=== PATIENT | female | born 2000 | race Caucasian/White ===

== ENCOUNTER → 2022-08-10 | Outpatient (CLI) | payer BC ==
--- NOTE | 2022-08-10 19:10 | Diagnostic Imaging Report ---
INDICATION: Routine care. TECHNIQUE: Multiple real-time grayscale images were obtained over the gravid uterus. COMPARISON: None. FINDINGS: There is a single live intrauterine gestation in variable presentation. The cervix measures 5.7 cm in length. The placenta is anterior, measuring 1.5 cm from the internal os. The amniotic fluid index measures 15.3 cm, and the heart rate measures 146 BPM. The stomach is seen. The nose and lips are seen. The kidneys are seen. The bladder is seen. There are two umbilical arteries demonstrating a three-vessel cord. The cerebellum and cisterna magna are suboptimally visualized. The cisterna magna is seen. The lateral ventricle is seen. The cord insertion is seen. A four-chamber heart is seen. The right and left ventricular outflow tracts are seen. The diaphragm is seen. The upper spine is well seen. The lower spine is suboptimally visualized due to lie. Biometrical measurements are as follows: Biparietal 4.55 cm, age 19 weeks 6 days. Head circumference 17.60 cm, age 20 weeks 1 days. Abdominal circumference 16.45 cm, age 21 weeks 4 days. Femur length 3.26 cm, age 20 weeks 2 days. Sonographic estimate age: 20 weeks 4 days. Sonographic estimated date of delivery: 12/24/2022. Estimated Weight: 376 gm (+/- 55 gm). LMP percentile: 86%. heart rate: 146 beats per minute. number: 1 of 1. IMPRESSION: 1. Single live intrauterine gestation measuring at 20 weeks and 4 days which is within range of the clinical dates. 2. Anatomic survey. No abnormality is seen. The cerebellum, cisterna magna, and lower spine are not well seen on today's exam. 3. Low-lying placenta. Recommend continued follow-up. Dictated by: Dictated on workstation # [id number]
== END ==
LOC: RAD 11:29
PROVIDERS: ATTEND Obstetrics & Gynecology
DX: O44.42 Low lying placenta NOS or without hemorrhage, second trimester (principal); Z3A.20 20 weeks gestation of pregnancy
CPT/HCPCS: 76805

== ENCOUNTER 2022-12-27 18:30 | Inpatient (IN) | payer BC ==
[~2022-12-27] VITALS: Ht 160 cm; Wt 104.3 kg
[2022-12-27] MEDS ORDERED: LACTATED RINGERS 1,000 ML IV SCH (19:45)
[2022-12-27] MEDS ORDERED: LACTATED RINGERS 1,000 ML IV ONE (19:49)
[2022-12-27 19:50] LABS: BILIRUBIN,URINE NEGATIVE (NEGATIVE); CLARITY,URINE CLEAR; COLOR,URINE YELLOW; GLUCOSE, URINE (UA) NEGATIVE (NEGATIVE); KETONES,URINE 1+ (NEGATIVE); LEUKOCYTE ESTERASE ,URINE TRACE (NEGATIVE); NITRITE,URINE NEGATIVE (NEGATIVE); PH,URINE 6.5 (5-9); PROTEIN,URINE NEGATIVE (NEGATIVE)
[2022-12-27 19:52] LABS: BASOPHILS % (AUTO) 0 % (0-10); EOSINOPHILS # (AUTO) 0.1 10^3/uL (0.0-0.3); EOSINOPHILS % (AUTO) 1 % (0-10); HEMATOCRIT 28 % (35-52); HEMOGLOBIN 9.1 g/dL (11.5-16.0); LYMPHOCYTES # (AUTO) 1.4 10^3/uL (1.0-4.0); LYMPHOCYTES % (AUTO) 12 % (12-44); MEAN CORPUSCULAR HEMOGLOBIN 27 pg (25-34); MEAN CORPUSCULAR HGB CONC 33 g/dL (32-36); MEAN CORPUSCULAR VOLUME 82 fL (80-99); MEAN PLATELET VOLUME 9.8 fL (9.0-12.2); MONOCYTES # (AUTO) 0.5 10^3/uL (0.0-1.0); MONOCYTES % (AUTO) 4 % (0-12); NEUTROPHILS # (AUTO) 10.1 10^3/uL (1.8-7.8); NEUTROPHILS % (AUTO) 83 % (42-75); PLATELET COUNT 232 10^3/uL (130-400); WHITE BLOOD COUNT 12.1 10^3/uL (4.3-11.0)
[2022-12-27] MEDS: D5 LR IV SOLUTION 1,000 ML IV SCH (19:55)
[2022-12-27 19:58] VITALS: BP 134/72
[2022-12-27 20:00] LABS: AMORPHOUS SEDIMENT,UR FEW AMOR URATES /LPF; BACTERIA,URINE FEW /HPF
[2022-12-27 21:30] VITALS: BP 142/83
[2022-12-27 22:30] VITALS: BP 132/84
[2022-12-28] VITALS (61 sets, daily range): BP systolic 107–140; BP diastolic 55–96
[2022-12-28] MEDS ORDERED: ACETAMINOPHEN 500 MG TAB (TYLENOL) ONE (01:45)
[2022-12-28] MEDS ORDERED: ACETAMINOPHEN 500 MG TAB (TYLENOL) PO ONE (01:45)
[2022-12-28] MEDS: D5 LR IV SOLUTION 1,000 ML IV SCH ×2 (03:32→11:12)
[2022-12-28] MEDS ORDERED: HYDROmorphone 2 MG/ML VIAL (DILAUDID) ONE (05:35)
[2022-12-28] MEDS ORDERED: HYDROmorphone 2 MG/ML VIAL (DILAUDID) IV ONE (05:45)
[2022-12-28] MEDS: CATHETER FLUSH 10 ML SYR IV SCH ×3 (06:00→14:00)
--- NOTE | 2022-12-28 06:14 | History & Physical-OB/GYN ---
History of Present Illness History of Present Illness Reason for visit/HPI Induction of labor Date of Admission Dec 27, 2022 at 18:59 I consulted on this patient on 12/28/22 06:09 Attending Physician No,Local Physician Admitting Physician Admitting Physician: Jb Hartman DO Attending Physician: Jb Hartman DO Consult Allergies and Home Medications Allergies Coded Allergies: No Known Drug Allergies (Unverified , 12/27/22) Patient Home Medication List Home Medication List Reviewed: No Past Fvoluri-Pxksgo-Jyksel Hx Patient Social History Smoking Status: Never a Smoker Have you traveled recently?: No Alcohol Use?: No Pt feels they are or have been: No Reproductive System : Yes Expected Date of Delivery: Dec 28, 2022 Physical Exam Physical Exam Vital Signs Vital Signs Date Time Temp Pulse Resp B/P (MAP) Pulse Ox O2 Delivery O2 Flow Rate FiO2 12/28/22 05:15 82 18 125/78 (94) Room Air 12/28/22 03:45 74 18 125/76 (92) Room Air 12/28/22 02:15 69 18 130/65 (86) Room Air 12/28/22 00:45 72 18 135/86 (102) Room Air 12/27/22 22:30 69 18 132/84 (100) Room Air 12/27/22 21:30 63 18 142/83 (102) Room Air 12/27/22 19:58 37.3 91 18 99 Room Air I & O 12/28/22 07:00 Intake Total 1500 ml Balance 1500 ml Capillary Refill : Less Than 3 Seconds Labs Laboratory Tests 12/27/22 19:35: White Blood Count 12.1H, Red Blood Count 3.42L, Hemoglobin 9.1L, Hematocrit 28L, Mean Corpuscular Volume 82, Mean Corpuscular Hemoglobin 27, Mean Corpuscular Hemoglobin Concent 33, Red Cell Distribution Width 14.5, Platelet Count 232, Mean Platelet Volume 9.8, Immature Granulocyte % (Auto) 0, Neutrophils (%) (Auto) 83H, Lymphocytes (%) (Auto) 12, Monocytes (%) (Auto) 4, Eosinophils (%) (Auto) 1, Basophils (%) (Auto) 0, Neutrophils # (Auto) 10.1H, Lymphocytes # (Auto) 1.4, Monocytes # (Auto) 0.5, Eosinophils # (Auto) 0.1, Basophils # (Auto) 0.0, Immature Granulocyte # (Auto) 0.0, Urine Color YELLOW, Urine Clarity CLEAR, Urine pH 6.5, Urine Specific [place] 1.010L, Urine Protein NEGATIVE, Urine Glucose (UA) NEGATIVE, Urine Ketones 1+H, Urine Nitrite NEGATIVE, Urine Bilirubin NEGATIVE, Urine Urobilinogen 0.2, Urine Leukocyte Esterase TRACEH, Urine RBC (Auto) NEGATIVE, Urine RBC NONE, Urine WBC 2-5, Urine Squamous Epithelial Cells 5-10, Urine Crystals PRESENTH, Urine Amorphous Sediment FEW DAMIEN URATESH, Urine Bacteria FEWH, Urine Casts NONE, Urine Mucus SMALLH, Urine Culture Indicated YES Assessment/Plan Admission Diagnosis Induction of labor Admission Status: Inpatient Order (span 2 midnights) Reason for Inpatient Admission: Induction of labor GISSELLE VILLA Dec 28, 2022 06:14
--- NOTE | 2022-12-28 06:22 | History & Physical-OB ---
GISSELLE VILLA 12/28/22 0622: OB - Chief Complaint & HPI Date/Time Date of Admission: Date of Admission: Dec 27, 2022 at 18:59 Chief Complaint/History OB-Reason for Admission/Chief: Induction of Labor Hx : 1 Hx Para: 0 Expected Date of Delivery: Dec 28, 2022 Gestational Age in Weeks: 39 Gestational Age in Days: 6 Indication for induction: maternal discomfort Other reason for admission: Induction of labor Admission Nurse Assessment Rev: Yes Allergies and Home Medications Allergies Coded Allergies: No Known Drug Allergies (Unverified , 12/27/22) Patient Home Medication List Home Medication List Reviewed: No OB - History Hx of Present Care: Yes Ultrasounds: Normal mid trimester US Obstetrical Complications: None Medical Complications: None Information Induced Hypertension: No Maternal Gestational Diabetes: No Hemorrhage: No Obstetrical History Hx : 1 Hx Para: 0 Hx Termination: No Hx Multiple Gestation: No Hx Ectopic : No Hx Stillbirth: No Hx Complication: No Hx Induced Hypertens: No Hx Maternal Gestational Diabet: No Hx Hemorrhage: No Delivery History Hx Dystocia: No Hx Forceps Assisted Delivery: No Hx Vacuum Extraction Assisted: No Hx Placenta Abnormality: No Hx Distress: No Hx Large For Gestational Age I: No Hx Small for Gestational Age I: No Hx Section: No Hx Vaginal Delivery Post C-Sec: No Hx Blood Disorders: No Adverse Rxn to Tranfusion: No Patient Past Medical History non-significant Social History/Family History Alcohol Use: Denies Use Recreational Drug Use: No Smoking Cessation: Never smoker 2nd Hand Smoke Exposure: No Immunizations Influenza Vaccine Up-to-Date: No; Not Current Tetanus Booster (TDap): Less than 5yrs Rubella: immune GBS Status: Negative HBsAG: Negative OB - Admission Exam Physical Exam Vitals: Vital Signs 12/27/22 12/28/22 19:58 05:15 Temp 37.3 Pulse 82 Resp 18 B/P (MAP) 125/78 (94) Pulse Ox 99 O2 Delivery Room Air Heart: Rhythm Normal Lungs: Clear Cervical Dilatation: 2cm Effacement: 75% Station: -3 Membranes: Intact Heart Rate: 150's Accelerations: Accelerations Present Decelerations: No Decelerations Skilled Nursing Variability: Average (6-25) Frequency of Contractions: 2-3 minutes Duration: 50-190 seconds Intensity: Moderate Narvaez Scoring Tool (Modified) Dilation (cm): 1-2cm (1) Effacement (%): 51-79% (2) Descent/Station: -3 (0) Subtract 1 point for: Nulliparity (-1) Labs Laboratory Tests Test 12/27/22 19:35 Range/Units White Blood Count 12.1 H 4.3-11.0 10^3/uL Red Blood Count 3.42 L 3.80-5.11 10^6/uL Hemoglobin 9.1 L 11.5-16.0 g/dL Hematocrit 28 L 35-52 % Mean Corpuscular Volume 82 80-99 fL Mean Corpuscular Hemoglobin 27 25-34 pg Mean Corpuscular Hemoglobin Concent 33 32-36 g/dL Red Cell Distribution Width 14.5 10.0-14.5 % Platelet Count 232 130-400 10^3/uL Mean Platelet Volume 9.8 9.0-12.2 fL Immature Granulocyte % (Auto) 0 % Neutrophils (%) (Auto) 83 H 42-75 % Lymphocytes (%) (Auto) 12 12-44 % Monocytes (%) (Auto) 4 0-12 % Eosinophils (%) (Auto) 1 0-10 % Basophils (%) (Auto) 0 0-10 % Neutrophils # (Auto) 10.1 H 1.8-7.8 10^3/uL Lymphocytes # (Auto) 1.4 1.0-4.0 10^3/uL Monocytes # (Auto) 0.5 0.0-1.0 10^3/uL Eosinophils # (Auto) 0.1 0.0-0.3 10^3/uL Basophils # (Auto) 0.0 0.0-0.1 10^3/uL Immature Granulocyte # (Auto) 0.0 0.0-0.1 10^3/uL Urine Color YELLOW Urine Clarity CLEAR Urine pH 6.5 5-9 Urine Specific [place] 1.010 L 1.016-1.022 Urine Protein NEGATIVE NEGATIVE Urine Glucose (UA) NEGATIVE NEGATIVE Urine Ketones 1+ H NEGATIVE Urine Nitrite NEGATIVE NEGATIVE Urine Bilirubin NEGATIVE NEGATIVE Urine Urobilinogen 0.2 < = 1.0 MG/DL Urine Leukocyte Esterase TRACE H NEGATIVE Urine RBC (Auto) NEGATIVE NEGATIVE Urine RBC NONE /HPF Urine WBC 2-5 /HPF Urine Squamous Epithelial Cells 5-10 /HPF Urine Crystals PRESENT H /LPF Urine Amorphous Sediment FEW DAMIEN URATES H /LPF Urine Bacteria FEW H /HPF Urine Casts NONE /LPF Urine Mucus SMALL H /LPF Urine Culture Indicated YES OB - Assessment/Plan/Diagnosis Assessment Assessment: induction of labor Admission Dx Induction of labor Admission Status: Inpatient Order (span 2 midnights) Reason for Inpatient Admission: Induction of labor Plan Plan: Induction Induction Method: per Misoprostol Protocol Reason for Induction: Maternal discomfort KIMBERLEY MENDIOLA DO 12/28/22 0908: OB - Chief Complaint & HPI Date/Time Time Seen by a Provider: 07:15 Allergies and Home Medications Allergies Coded Allergies: No Known Drug Allergies (Unverified , 12/27/22) OB - Assessment/Plan/Diagnosis Plan Other Plan Verification and Attestation of Medical Student E/M Service A medical student performed and documented this service in my presence. I reviewed and verified all information documented by the medical student and made modifications to such information, when appropriate. I personally performed the physical exam and medical decision making. Kimberley Mendiola, Dec 28, 2022,09:08 GISSELLE VILLA Dec 28, 2022 06:22 KMIBERLEY MENDIOLA DO Dec 28, 2022 09:08
[2022-12-28] MEDS ORDERED: OXYTOCIN PRE-MIX DRIP 500 ML IV SCH ×2 (07:30→14:45)
[2022-12-28] MEDS ORDERED: fentaNYL 2 mcg/ml BUPIVA 0.125 100 ML ONE (08:03)
[2022-12-28] MEDS ORDERED: fentaNYL INJ 100 MCG/2 ML AMP ONE (08:30)
[2022-12-28] MEDS ORDERED: BUPIVACAINE 0.25% 10 ML (SENSORCAINE) VIAL ONE (08:30)
[2022-12-28] MEDS ORDERED: ONDANSETRON 4 MG/2 ML (SDV) Z0FRAN IV PRN (09:45)
[2022-12-28] MEDS ORDERED: diphenhydrAMINE 50 MG/ML INJ (BENADRYL) IV PRN (09:45)
[2022-12-28] MEDS ORDERED: NALOXONE 0.4 MG/ML 1 ML (NARCAN) VIAL IV PRN ×3 (09:45→14:45)
[2022-12-28] MEDS ORDERED: fentaNYL 2 mcg/ml BUPIVA 0.125 100 ML EPI SCH (09:45)
[2022-12-28] MEDS ORDERED: METOCLOPRAMIDE INJ 10 MG/2 ML (REGLAN) IV PRN (09:45)
[2022-12-28] MEDS ORDERED: LACTATED RINGERS 1,000 ML IV ONE (09:45)
[2022-12-28] MEDS ORDERED: LIDOCAINE 1% INJ 10 ML VIAL ONE ×2 (13:15→13:16)
[2022-12-28] MEDS ORDERED: LIDOCAINE 1% INJ 10 ML VIAL INJ ONE (13:54)
[2022-12-28] MEDS ORDERED: MEASLES,MUMPS,RUBELLA 1 EA INJ SQ ONE (14:45)
[2022-12-28] MEDS ORDERED: TETANUS,DIPTH,PERTUSS P/F (BOOSTRIX) 0.5 ML VIAL IM ONE (14:45)
[2022-12-28] MEDS ORDERED: HYDROcodone/APAP 5 MG/325 MG (LORTAB) TAB PO PRN (14:45)
[2022-12-28] MEDS ORDERED: DIBUCAINE 1% OINTMENT 28 GM TUBE TOP PRN (14:45)
[2022-12-28] MEDS ORDERED: BENZOCAINE/MENTHOL (DERMOPLAST) 56 ML CAN TP PRN (14:45)
--- NOTE | 2022-12-28 14:56 | OB Labor & Delivery Record ---
L&D History Date of Service Date of Service: Dec 28, 2022 History Expected Date of Delivery: Dec 28, 2022 Gestational Age in Weeks: 39 Hx : 1 Hx Para: 0 Complications Events: Routine care Operative Indications (Cesarea: N/A-Vaginal Delivery Intrapartal Events: None L&D Stage1 Stage One Onset of Labor - Date: Dec 28, 2022 Monitors and Tracing Monitor Mode: External Heart Rate: 155 Monitor Accelerations: Uniform Monitor Decelerations: Variable Station: -3 Intermediate Variability: Average (6-10) Short Term Variability: Present Presentation: Vertex Vital Signs VS - Last 72 Hours, by Label 12/27/22 12/27/22 12/27/22 12/28/22 19:58 21:30 22:30 00:45 Temp 37.3 Pulse 91 63 69 72 Resp 18 18 18 18 B/P (MAP) 142/83 (102) 132/84 (100) 135/86 (102) Pulse Ox 99 O2 Delivery Room Air Room Air Room Air Room Air 12/28/22 12/28/22 12/28/22 12/28/22 02:15 03:45 05:15 06:45 Temp 36.6 Pulse 69 74 82 71 Resp 18 18 18 18 B/P (MAP) 130/65 (86) 125/76 (92) 125/78 (94) 138/84 (102) O2 Delivery Room Air Room Air Room Air Room Air 12/28/22 12/28/22 12/28/22 12/28/22 08:03 08:12 08:15 08:20 Temp 36.5 Pulse 68 69 67 67 Resp 18 18 18 18 B/P (MAP) 134/84 (101) 133/82 (99) 140/79 (99) 131/77 (95) Pulse Ox 100 100 100 O2 Delivery Room Air Room Air Room Air Room Air 12/28/22 12/28/22 12/28/22 12/28/22 08:23 08:26 08:27 08:30 Pulse 69 74 74 72 Resp 18 18 18 18 B/P (MAP) 136/79 (98) 128/73 (91) 135/76 (95) 132/74 (93) Pulse Ox 99 99 96 O2 Delivery Room Air Room Air Room Air Room Air 4/1812/28/22 12/28/22 12/28/22 08:31 08:32 08:34 08:39 Pulse 65 64 71 65 Resp 18 18 18 18 B/P (MAP) 133/74 (93) 133/77 (95) 136/79 (98) 127/74 (91) Pulse Ox 98 98 99 99 O2 Delivery Room Air Room Air Room Air Room Air 12/28/22 12/28/22 12/28/22 12/28/22 08:42 08:45 08:48 08:50 Pulse 70 72 72 75 Resp 18 18 18 18 B/P (MAP) 131/79 (96) 123/77 (92) 126/78 (94) 126/76 (93) Pulse Ox 97 98 O2 Delivery Room Air Room Air Room Air Room Air 12/28/22 12/28/22 12/28/22 12/28/22 08:53 08:57 09:00 09:05 Pulse 73 75 83 73 Resp 18 18 18 18 B/P (MAP) 130/66 (87) 133/69 (90) 130/75 (93) 126/72 (90) Pulse Ox 99 99 99 O2 Delivery Room Air Room Air Room Air Room Air 12/28/22 12/28/22 12/28/22 12/28/22 09:09 09:13 09:19 09:24 Pulse 79 78 80 69 Resp 18 18 18 18 B/P (MAP) 122/82 (95) 140/84 (102) 137/80 (99) 131/60 (83) Pulse Ox 100 100 99 100 O2 Delivery Room Air Room Air Room Air Room Air 12/28/22 12/28/22 12/28/22 12/28/22 09:29 09:33 09:39 09:43 Pulse 71 74 70 81 Resp 18 18 18 18 B/P (MAP) 128/76 (93) 124/96 (105) 129/77 (94) 123/76 (92) Pulse Ox 100 O2 Delivery Room Air Room Air Room Air Room Air 12/28/22 12/28/22 12/28/22 12/28/22 09:48 10:11 10:19 10:33 Pulse 71 75 63 77 Resp 18 18 18 18 B/P (MAP) 134/79 (97) 126/76 (93) 123/72 (89) 129/78 (95) O2 Delivery Room Air Room Air Room Air Room Air 12/28/22 12/28/22 12/28/22 12/28/22 10:49 11:04 11:19 11:35 Temp 36.9 Pulse 69 82 67 70 Resp B/P (MAP) 133/76 (95) 130/75 (93) 137/80 (99) 140/85 (103) O2 Delivery Room Air Room Air Room Air Room Air Rupture of Membranes Spontaneous Ruture of Membrane: Yes Amniotic Membrane Rupture Time: 723 Amniotic Membrane Fluid Desc.: Clear Vaginal Bleeding Description: Normal Show Induction/Anesthesia Epidural Cath Placement - Time: 823 Progress/Notes Patient admitted for post dates IOL. Misoprostol PO given overnight. She then had AROM performed this AM followed by low dose pitocin augmentation to max dose of 4 mu. She progressed after receiving an epidural to complete and + 2 station L&D Stage2 Stage Two Stage II Date: Dec 28, 2022 Monitors and Tracing Monitor Mode: External Heart Rate: 155 Intermediate Variability: Average (6-10) Short Term Variability: Present Position: Right Occiput Anterior Presentation: Vertex Cord Descript/Complications Cord Vessel Description: 3 Vessels Delivery Type Infant Delivery Method: Spontaneous Vaginal Anterior Shoulder: Left Episiotomy/Perineal Laceration Episiotomy Description: Midline Location Modifier: Medial Degree (describe repair) midline episiotomy repaired using 3-0 and 2-0 vicryl suture in usual fashion. Condition of Delivery 1 minute Comment: 8 5 minute Comment: 9 Notes Live female infant weight 9lbs 7oz. Condition of Condition of : Living Exam: No Observed Abnormalities Resuscitation Resuscitation: N/A - Spontaneous Resp L&D Stage3 Stage Three Stage III Date: Dec 28, 2022 Pictocin Pitocin Administration mu/min: 4 Pitocin ml/hr: 4 Pitocin Administration Comment: 30 mu wide open after delivery of placenta Placenta Delivery Placenta Delivery: Spontaneous Delivery Summary Summary Estimated blood loss (mL): 450 Attending at delivery: Kimberley Mendiola DO Condition of Delivery Examined: Cervix Examined, Uterus Explored Post Hemorrhage: No Condition of Mother stable Condition of Infant (s) stable KIMBERLEY MENDIOLA DO Dec 28, 2022 14:56
--- NOTE | 2022-12-28 14:58 | Discharge Inst-Women's Service ---
Discharge Inst-Women's Serv Depart Medication/Instructions New, Converted or Re-Newed RX: Transmitted to Pharmacy Problems Reviewed?: Yes Consults/Follow Up Additional Follow Up: Yes Orders/Referrals Dr. Mendiola in 6 weeks Activity Activity: Activity as Tolerated Driving Instructions: No Driving for 1 Week NO SMOKING: NO SMOKING Nothing Inside Vagina: No Douching, No [place], No Tampons Diet Discharge Diet: No Restrictions Symptoms to Report to : Bleeding Excessive, Pain Increased, Fever Over 101 Degrees F, Vaginal Bleeding Increase, Questions/Concerns For Any Problems or Questions: Contact Your Physician KIMBERLEY MENDIOLA DO Dec 28, 2022 14:58
[2022-12-28] MEDS ORDERED: DOCU100C37 PO (14:59)
[2022-12-28] MEDS ORDERED: IBUP-844 PO (14:59)
[2022-12-28] MEDS ORDERED: ACHD5005 PO (14:59)
[2022-12-28] MEDS ORDERED: FERR325T24 PO (14:59)
[2022-12-28] MEDS ORDERED: BENZ78AE5 TP (14:59)
[2022-12-28] MEDS ORDERED: DIBU30OI TOP (14:59)
[2022-12-28] MEDS: IBUPROFEN 600 MG (MOTRIN) TAB PO SCH (17:58)
[2022-12-28] MEDS: WITCH HAZEL(TUCKS) 40 EA JAR TOP PRN (18:00)
[2022-12-28] MEDS: DOCUSATE SODIUM 100 MG (COLACE) CAP PO SCH (20:16)
[2022-12-28] MEDS ORDERED: CATHETER FLUSH 10 ML SYR IV SCH (22:00)
[2022-12-29 00:31] VITALS: BP 118/79
[2022-12-29] MEDS: IBUPROFEN 600 MG (MOTRIN) TAB PO SCH ×5 (00:31→23:57)
[2022-12-29 03:30] VITALS: BP 132/74
[2022-12-29 06:36] LABS: BASOPHILS % (AUTO) 0 % (0-10); EOSINOPHILS # (AUTO) 0.1 10^3/uL (0.0-0.3); EOSINOPHILS % (AUTO) 0 % (0-10); HEMATOCRIT 21 % (35-52); LYMPHOCYTES # (AUTO) 1.7 10^3/uL (1.0-4.0); LYMPHOCYTES % (AUTO) 13 % (12-44); MEAN CORPUSCULAR HGB CONC 32 g/dL (32-36); MEAN CORPUSCULAR VOLUME 83 fL (80-99); MEAN PLATELET VOLUME 9.5 fL (9.0-12.2); MONOCYTES # (AUTO) 0.8 10^3/uL (0.0-1.0); MONOCYTES % (AUTO) 6 % (0-12); NEUTROPHILS # (AUTO) 10.7 10^3/uL (1.8-7.8); NEUTROPHILS % (AUTO) 80 % (42-75); PLATELET COUNT 203 10^3/uL (130-400); WHITE BLOOD COUNT 13.4 10^3/uL (4.3-11.0)
[2022-12-29 06:41] LABS: HEMOGLOBIN 6.8 g/dL (11.5-16.0); MEAN CORPUSCULAR HEMOGLOBIN 26 pg (25-34)
--- NOTE | 2022-12-29 07:33 | Postpartum Progress Note ---
GISSELLE VILLA 12/29/22 0733: Note Note Day # 1 Subjective: Patient is without complaints. Ambulating, voiding. Tolerating a regular diet without nausea or vomiting. Normal lochia. Pain is well controlled with oral pain medications. Objective: Physical Exam: General - Alert and oriented, no apparent distress Cardio - RRR, no murmurs Pulmonary - CTAB Abdomen - Soft, appropriately tender to palpation, non-distended, fundus firm at umbilicus Extremities - no edema, negative Sudarshan's bilaterally Assessment: Post- day # 1, status post vaginal delivery. Recovering well Acute on chronic anemia Reactive leukocytosis Plan: Routine care. Encourage breast feeding. Encourage ambulation. Advised being slow to stand and to take time getting around due to possibility of orthostatic hypotension. Ferrous sulfate supplementation. Plan for discharge 12/30/2022 Vitals - Labs Vital Signs - I&O Vital Signs Date Time Temp Pulse Resp B/P (MAP) Pulse Ox O2 Delivery O2 Flow Rate FiO2 12/29/22 03:30 36.4 98 18 132/74 (93) 96 Room Air 12/29/22 00:31 36.8 98 18 118/79 (92) 96 Room Air 12/28/22 20:16 37.1 93 18 110/62 (78) 98 Room Air 12/28/22 17:56 36.9 74 18 138/79 (98) 100 Room Air 12/28/22 16:42 37.5 107 18 129/76 (93) Room Air 12/28/22 16:33 93 18 126/65 (85) Room Air 12/28/22 16:18 85 18 139/73 (95) Room Air 12/28/22 16:03 86 18 132/76 (94) Room Air 12/28/22 15:48 90 18 135/80 (98) Room Air 12/28/22 15:04 86 18 128/71 (90) Room Air 12/28/22 14:48 81 18 120/59 (79) Room Air 12/28/22 14:34 88 18 136/62 (86) Room Air 12/28/22 14:18 100 18 136/66 (89) Room Air 12/28/22 13:50 78 18 134/79 (97) Room Air 12/28/22 13:34 78 18 138/75 (96) Room Air 12/28/22 13:20 86 18 137/72 (93) Room Air 12/28/22 13:05 84 18 124/70 (88) Room Air 12/28/22 12:51 92 18 123/87 (99) Room Air 12/28/22 12:33 77 18 126/69 (88) Room Air 12/28/22 12:19 85 18 139/86 (103) Room Air 12/28/22 12:04 88 18 132/83 (99) Room Air 12/28/22 11:51 78 18 107/55 (72) Room Air 12/28/22 11:35 36.9 70 18 140/85 (103) Room Air 12/28/22 11:19 67 18 137/80 (99) Room Air 12/28/22 11:04 82 18 130/75 (93) Room Air 12/28/22 10:49 69 18 133/76 (95) Room Air 12/28/22 10:33 77 18 129/78 (95) Room Air 12/28/22 10:19 63 18 123/72 (89) Room Air 12/28/22 10:11 75 18 126/76 (93) Room Air 12/28/22 09:48 71 18 134/79 (97) Room Air 12/28/22 09:43 81 18 123/76 (92) Room Air 12/28/22 09:39 70 18 129/77 (94) Room Air 12/28/22 09:33 74 18 124/96 (105) Room Air 12/28/22 09:29 71 18 128/76 (93) 100 Room Air 12/28/22 09:24 69 18 131/60 (83) 100 Room Air 12/28/22 09:19 80 18 137/80 (99) 99 Room Air 12/28/22 09:13 78 18 140/84 (102) 100 Room Air 12/28/22 09:09 79 18 122/82 (95) 100 Room Air 12/28/22 09:05 73 18 126/72 (90) 99 Room Air 12/28/22 09:00 83 18 130/75 (93) 99 Room Air 12/28/22 08:57 75 18 133/69 (90) Room Air 12/28/22 08:53 73 18 130/66 (87) 99 Room Air 12/28/22 08:50 75 18 126/76 (93) Room Air 12/28/22 08:48 72 18 126/78 (94) 98 Room Air 12/28/22 08:45 72 18 123/77 (92) 97 Room Air 12/28/22 08:42 70 18 131/79 (96) Room Air 12/28/22 08:39 65 18 127/74 (91) 99 Room Air 12/28/22 08:34 71 18 136/79 (98) 99 Room Air 12/28/22 08:32 64 18 133/77 (95) 98 Room Air 12/28/22 08:31 65 18 133/74 (93) 98 Room Air 12/28/22 08:30 72 18 132/74 (93) 96 Room Air 12/28/22 08:27 74 18 135/76 (95) Room Air 12/28/22 08:26 74 18 128/73 (91) 99 Room Air 12/28/22 08:23 69 18 136/79 (98) 99 Room Air 12/28/22 08:20 67 18 131/77 (95) 100 Room Air 12/28/22 08:15 67 18 140/79 (99) 100 Room Air 12/28/22 08:12 36.5 69 18 133/82 (99) 100 Room Air 12/28/22 08:03 68 18 134/84 (101) Room Air I & O 12/29/22 07:00 Intake Total 2000 ml Balance 2000 ml Labs Laboratory Tests 12/29/22 06:22: White Blood Count 13.4H, Red Blood Count 2.57L, Hemoglobin 6.8#*L, Hematocrit 21L, Mean Corpuscular Volume 83, Mean Corpuscular Hemoglobin 26, Mean Corpuscular Hemoglobin Concent 32, Red Cell Distribution Width 14.5, Platelet Count 203, Mean Platelet Volume 9.5, Immature Granulocyte % (Auto) 1, Neutrophils (%) (Auto) 80H, Lymphocytes (%) (Auto) 13, Monocytes (%) (Auto) 6, Eosinophils (%) (Auto) 0, Basophils (%) (Auto) 0, Neutrophils # (Auto) 10.7H, Lymphocytes # (Auto) 1.7, Monocytes # (Auto) 0.8, Eosinophils # (Auto) 0.1, Bas ophils # (Auto) 0.0, Immature Granulocyte # (Auto) 0.1 Microbiology 12/27/22 Urine Culture - Preliminary, Resulted Culture In Progress KIMBERLEY MENDIOLA DO 12/30/22 0715: Note Note Verification and Attestation of Medical Student E/M Service A medical student performed and documented this service in my presence. I reviewed and verified all information documented by the medical student and made modifications to such information, when appropriate. I personally performed the physical exam and medical decision making. Kimberley Mendiola, Dec 30, 2022,07:15 GISSELLE VILLA Dec 29, 2022 07:33 KIMBERLEY MENDIOLA DO Dec 30, 2022 07:15
[2022-12-29] MEDS: PRENATAL VITAMIN 1 EA TAB PO SCH (08:02)
[2022-12-29 09:15] VITALS: BP 110/58
[2022-12-29] MEDS: DOCUSATE SODIUM 100 MG (COLACE) CAP PO SCH ×2 (09:15→20:19)
[2022-12-29] MEDS: FERROUS SULF 325 MG (IRON) TAB PO SCH (09:15)
--- NOTE | 2022-12-29 11:40 | Anesthesia-Regional Post-Op ---
Regional Patient Condition Mental Status: Alert, Oriented x3 Circulation: Same as Pre-Op Headache: Absent Sensation: Full Recovery Motor Block: Absent Post Op Complications Complications None Follow Up Care/Instructions Patient Instructions None needed. Anesthesia/Patient Condition Patient is doing well, no complaints, stable vital signs, no apparent adverse anesthesia problems. No complications reported per nursing. RICK MCCORMICK CRNA Dec 29, 2022 11:40
[2022-12-29 13:15] VITALS: BP 127/61
[2022-12-29] MEDS: WITCH HAZEL(TUCKS) 40 EA JAR TOP PRN (20:22)
[2022-12-29 20:47] VITALS: BP 114/72
[2022-12-30 02:35] VITALS: BP 119/74
[2022-12-30] MEDS: IBUPROFEN 600 MG (MOTRIN) TAB PO SCH (06:16)
--- NOTE | 2022-12-30 07:25 | Postpartum Progress Note ---
Note Note Day # 2 Subjective: Patient is without complaints. Ambulating, voiding. Tolerating a regular diet without nausea or vomiting. Normal lochia. Pain is well controlled with oral pain medications. Objective: Physical Exam: General - Alert and oriented, no apparent distress Abdomen - Soft, appropriately tender to palpation, non-distended, fundus firm at umbilicus Extremities - no edema, negative Sudarshan's bilaterally Assessment: PPD 2 NVD Acute blood loss anemia- asymptomatic Plan: Routine care. Encourage breast feeding. Encourage ambulation. Ferrous sulfate supplementation. Plan for discharge today Vitals - Labs Vital Signs - I&O Vital Signs Date Time Temp Pulse Resp B/P (MAP) Pulse Ox O2 Delivery O2 Flow Rate FiO2 12/30/22 02:35 36.5 75 16 119/74 (89) 100 Room Air 12/29/22 20:47 36.7 89 17 114/72 (86) 98 12/29/22 13:15 36.4 90 18 127/61 (83) 100 Room Air 12/29/22 09:15 36.4 73 18 110/58 (75) 97 Room Air Labs Microbiology 12/27/22 Urine Culture - Final, Complete Gram Pos Mixed Bacterial Aliaz KIMBERLEY MENDIOLA DO Dec 30, 2022 07:25
[2022-12-30] MEDS: DOCUSATE SODIUM 100 MG (COLACE) CAP PO SCH (09:02)
[2022-12-30] MEDS: PRENATAL VITAMIN 1 EA TAB PO SCH (09:02)
[2022-12-30] MEDS: FERROUS SULF 325 MG (IRON) TAB PO SCH (09:02)
[2022-12-30 09:14] VITALS: BP 144/82
== END 2022-12-30 10:10 | disposition home or self-care (01) | DRG 806 ==
LOC: LDRP 18:59
PROVIDERS: ADMIT Obstetrics & Gynecology; ATTEND Obstetrics & Gynecology
PROC: 10E0XZZ Delivery of Products of Conception, External Approach (ICD-10-PCS; principal; 2022-12-28)
PROC: 10907ZC Drainage of Amniotic Fluid, Therapeutic from Products of Conception, Via Natural or Artificial Opening (ICD-10-PCS; 2022-12-28)
PROC: 0W8NXZZ Division of Female Perineum, External Approach (ICD-10-PCS; 2022-12-28)
DX: O90.81 Anemia of the puerperium (principal); D62 Acute posthemorrhagic anemia; Z37.0 Single live birth; Z3A.39 39 weeks gestation of pregnancy; D72.829 Elevated white blood cell count, unspecified
CPT/HCPCS: 36415; 81000; 85025; 86780; 86850; 86900; 86901; 87088